=== PATIENT | female | born 1970 | race Caucasian/White ===

== ENCOUNTER 2024-05-11 14:11 | Emergency (ER) | payer OTHER, SELFPAY ==
--- NOTE | 2024-05-11 16:09 | ED.GENMED ---
History of Present Illness
General
Chief Complaint: Musculo-Skeletal Complaint
Source: patient
Exam Limitations: none
Time Seen by Provider: 05/11/24 15:29
Nursing documentation reviewed up to this point in time: agreed with
History of Present Illness
History of Present Illness:
53-year-old female presents to the ER for evaluation of left upper back pain. Patient has a history of ongoing muscle spasms /chronic upper back/neck pain since injury in 2003. She reports that she has had a recent flareup for the past several
days she does get. She does get periodic shiatsu work and massages. She had a massage yesterday and had shiatsu work done today and feels that this aggravated her symptoms.
She complains of pain to her left upper trapezius area and feels that this is a muscle spasm. She denies any radiation of pain. She denies any numbness tingling in her weakness in extremities.
She did take acetaminophen today but nothing else. She normally takes Tylenol and Motrin. She denies any headache. She denies any dizziness. She denies any trauma.
Triage note reports patient has arm pain she reports she has had previous fractures of her left wrist and has had some pain related to that but has no complaints of pain to her left arm now.
she has no cardiac history denies chest pain/shortness of breath, denies fever/chills. Pt currently no longer gets her menses.
Review of Systems
Review of Systems
Allergies reviewed?: Yes
All Other Systems: ROS reviewed and negative except as documented in HPI and ROS
Constitutional: Reports no symptoms; Denies fever, fatigue or chills
EENT: Reports no symptoms
Respiratory: Reports no symptoms
Cardiac: Reports no symptoms
ABD/GI: Reports no symptoms
Musculoskeletal: Reports other (left upper back pain )
Skin: Reports no symptoms
Neurological: Reports no symptoms; Denies dizzy, headache or numbness
Psychiatric: Reports no symptoms
Phy Exam
General Physical Exam
General Presentation: no apparent distress
General age: appears stated age
General Skin: warm and dry
General Habitus: normal
General Mental: alert
General Hydration: appears well hydrated
Neurological Exam
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
Musculoskeletal Exam
Musculoskeletal Exam: other (pt with normal inspection to back no redness no rash, tender to the left upper trapezius region no bony cervical tenderness, freely moves neck without difficulty; normal distal)
Skin Exam
Skin Exam: normal color and warm/dry
Psychiatric Exam
Psychiatric Exam: normal mood/affect
Course
Orders/Labs/Results
Orders:
Orders
05/11/24 15:58
Vital Signs- Treatment ONCE
Frequency: Once
05/11/24 16:08
Ketorolac [Toradol] 30 mg IM NOW STA
Vital Signs
Initial and Last Documented VS:
Initial Vital Signs
Temp Pulse Resp Pulse Ox
98.2 F 65 16 98
05/11/24 14:15 05/11/24 14:15 05/11/24 14:15 05/11/24 14:15
Last Documented Vital Signs
Temp Pulse Resp BP Pulse Ox
98.2 F 79 20 165/97 98
05/11/24 14:15 05/11/24 16:23 05/11/24 16:23 05/11/24 16:23 05/11/24 16:23
MDM/Problems Addressed
Differential Diagnosis Includes:
Not limited muscle spasm, muscle pain sprain strain
MDM/Problems Addressed:
Symptoms are consistent with muscle spasm of left upper trapezius. Will give dose of IM Toradol. Patient will be driving after her friend drives her home from the ER and she does not want any other sedating medication. Will send a prescription to
Flexeril to patient's pharmacy. Discussed alternate ice heat, ibuprofen Tylenol and Flexeril as needed. Close follow the family doctor. to Return if any worsening of symptoms
Chronic conditions affecting care:
chronic neck pain
*Pulse Oximetry
Patient hypoxic: no
*Critical Care Note
Total Time (30-74mins, 75-104mins- exclusive of procedures): Not Applicable
ED Attending Note
-
Portions of this chart may have been created with voice recognition software.� Occasional wrong word or��sound alike� substitutions may have occurred due to the inherent limitations of voice recognition software.
Discharge Plan
Departure
Patient Disposition: Home (Routine Discharge)
Date of Disposition: 05/11/24
Time of Disposition: 16:17
Patient with high blood pressure during this ER visit?: Yes
Discharge Problem:
Muscle spasm
Instructions: Muscle spasms (muscle cramps), BLOOD PRESSURE
Prescriptions:
New
cyclobenzaprine 10 mg tablet
10 mg PO Q8H PRN (Reason: muscle spasm) Qty: 10 0RF
Referrals:
Jesus Bello DO, DO [Family Provider] -
Activity Restrictions/Additional Instructions:
As discussed ibuprofen 600 mg every 8 hours with food. You may alternate with Tylenol which should be taken every 4-6 hours.
In addition a prescription for muscle laxer, Flexeril sent to your pharmacy. Take as directed up to every 8 hours Only take as needed. This medication may cause sedation. No driving or drinking alcohol with taking this medication.
Follow-up close with your family doctor the next of days for reevaluation return if any worsening of symptoms.
Interventions
Interventions:
*Risk Screen - Suicide Last Done: 05/11/24 14:15
*Neglect/Abuse Screening Last Done: 05/11/24 14:15
Discharge Date and Time
Print Language: [id number]
[2024-05-11 16:23] VITALS: BP 165/97
[2024-05-11] MEDS: TORADOL 30 MG IM (16:24)
== END 2024-05-11 16:38 | disposition home or self-care (01) ==
LOC: EMR 14:11
PROVIDERS: EMERGENCY PHYSICIAN Emergency Medicine; FAMILY PHYSICIAN Acupuncturist
DX: M62.838 Other muscle spasm (principal)
CPT/HCPCS: 99282; 96372